=== PATIENT | male | born 2000 | race Caucasian/White ===

== ENCOUNTER 2021-03-02 10:16 | Outpatient (CLI) | payer BC ==
[2021-03-02] MEDS ORDERED: Gadobenate Dimeglumine 529 MG/1 ML (20ML VIAL) ONE (11:15)
[2021-03-02] MEDS ORDERED: Iopamidol 300 61% 50 ML VIAL FS ONE (11:15)
[2021-03-02] MEDS ORDERED: Lidocaine 1% PF 10 ML AMP ONE (11:15)
[2021-03-02] MEDS ORDERED: EPINEPHrine 1 MG/ML AMP ONE (11:15)
== END 2021-03-02 10:17 | disposition home or self-care (01) ==
LOC: RAD 10:16
PROVIDERS: ATTEND Orthopaedic Surgery
DX: M25.511 Pain in right shoulder (principal); M25.411 Effusion, right shoulder; Q89.8 Other specified congenital malformations
CPT/HCPCS: 23350; A9577; J0171; J2001; Q9967